=== PATIENT | female | born 1985 | race Caucasian/White ===

== ENCOUNTER 2018-09-06 09:13 | Emergency (ER) | payer OTHER, SELFPAY ==
[~2018-09-06] VITALS: Ht 160 cm; Wt 75.7 kg
--- NOTE | 2018-09-06 09:16 | NUR ---
ARRIVAL PATIENT TO ER 5, AMBULATORY, STATES SHE WAS DRINKING LAST NIGHT, AND TRIPPED OVER HER DOG AND "JAMMED HER PINKY." ASSESSMENT COMPLETED, AWAITING MD MARTIN. CONNECTED TO ALL MONITORS.
[2018-09-06 09:28] VITALS: BP 124/81
--- NOTE | 2018-09-06 09:37 | ER.PDOC ---
General Chief Complaint: Extremities Stated Complaint: FALL,RT HAND PINKY FINGER INJURY Time seen by MD: 09:20 Source: patient Exam Limitations: no limitations History of Present Illness Initial Comments the patient presents to the ER complaining of 1 day h/o right 5th finger/hand pain after she fell on outstreched hand after drinking alcohol last night. the patient's right 5th finger is an abducted and extended position. the patient states she is unable to flex/adduct right 5th finger. she is right handed. she denies pain over thumb, or index-ring fingers. no numbness or tingling in right hand. the patient denies pain over radial aspect of right wrist. the patient denies numbness/tingling. 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 the patient denies hitting her head or any other injuries. pain scale 8/10. no other allev /exac factors. no other complaints. Allergies: Coded Allergies: Penicillins (Verified Allergy, Intermediate, Hives, 09/06/18) Past Medical History Medical History: no pertinent history Surgical History: LMP (females 10-50): last week Family History Significant Family History: no pertinent family hx Social History Smoking: cigarettes, less than 1 pack/day Alcohol Use: occassionally Drug Use: none Reviewed Nursing Reviewed: Vital Signs, Abn. Noted, Nursing Assessment Review of Systems Musculoskeletal: see HPI All Other Systems: Reviewed and Negative Physical Exam General Appearance: Alert Hand: limited ROM Wrist: nml inspection Neuro: sensation nml Vascular: no vascular compromise Forearm/Elbow/Arm: uninjured above wrist Skin: warm/dry Comments right 5th finger is in extended, abducted position. patient is unable to flex/ adduct right 5th finger secondary to pain. tenderness to palpation over right 5th metacarpal and ulnar aspect of right wrist. no tenderness over anatomic snuffbox. no tenderness and full ROM of right thumb, index-ring fingers. good ROM of right wrist, elbow, and shoulder. no significant swelling of finger/ hand. good pulses b/l. Left hand/LUE WNL. Splinting Splinting : Hand-Made Type: aluminum-foam Splint: finger splint and joanie tape to right ring finger Pre-Proc Neuro Vasc Exam: normal Post-Proc Neuro Vasc Exam: normal, unchanged from pre-exam Progress the patient was given ulnar nerve block with 2% lidocaine without epinephrine 5cc. care was taken to aspirate to insure the needle was not in the ulnar artery prior to infiltration. the patient tolerated the procedure well without complications. Progress Progress the patient has remained hemodynamically stable, afebrile and neurologically intact while in the ER. The patient was counseled on finger sprain. the patient was given ulnar nerve block with 2% lidocaine without epi and the patient noted significant improvement of her pain and ROM. I suspect the patient sustained ligamentous injury. the right 5th finger was splinted and joanie taped to right ring finger. the patient was referred to ortho. she was given tramadol in the ER. she has been advised to continue tylenol/motrin at home. Patient advised to f/u with PMD in 1-2 days or return for worsening symptoms/concerns. Further diagnostic workup/therapeutic interventions offered which patient declines at this time EKG/XRAY/CT/US XRAY: hand (negative for fracture or dislocation) Departure Time of Disposition: 10:05 Disposition: 01 HOME, SELF-CARE Impression: Primary Impression: Sprain of right little finger Condition: Improved Patient Instructions: Finger Sprain Referrals: YAZMIN CORTEZ (PCP) PRIMARY CARE PROVIDER ELINA FERNANDEZ MD right 5th finger sprain Additional Instructions: please follow up with your doctor in 1-2 days or return for worsening symptoms/ concerns. apply cold packs and take tylenol/motrin for pain. Duration or Time Spent with Pa: 20min ELINA JONES MD Sep 06, 2018 09:37
[2018-09-06] MEDS ORDERED: LIDOCAINE 2% VIAL ONE (09:45)
--- NOTE | 2018-09-06 09:54 | DIREP ---
PROCEDURE:XRAY HAND MIN 3 VW-RT COMPARISON:None. INDICATIONS:right 5th metacarpal and phalanx pain, unable to flex/adduct r 5th finger FINDINGS: BONES:No visible fracture. JOINTS:Mild dorsal soft tissue swelling at the MCP joints on the lateral image. SOFT TISSUES:Normal. OTHER:The 5th finger is extended medially. CONCLUSION:No visible fracture or dislocation of the 5th finger or MCP joint. Dictated by: Bruce Torres M.D. on 09/06/2018 at 09:46 AM
[2018-09-06 10:00] VITALS: BP 124/81
[2018-09-06] MEDS ORDERED: ULTRAM PO STA (10:08)
[2018-09-06] MEDS ORDERED: ULTRAM ONE (10:12)
[2018-09-06 10:21] VITALS: BP 124/81
== END 2018-09-06 10:17 | disposition home or self-care (01) ==
LOC: ER 09:13
DX: S63.616A Unspecified sprain of right little finger, initial encounter (principal); F17.210 Nicotine dependence, cigarettes, uncomplicated; Z88.0 Allergy status to penicillin; W18.39XA Other fall on same level, initial encounter; Y93.89 Activity, other specified; Y92.89 Other specified places as the place of occurrence of the external cause; Y99.8 Other external cause status
CPT/HCPCS: 29130; 73130; 99283; J2001

== ENCOUNTER 2021-06-02 04:25 | Emergency (ER) | payer OTHER ==
[~2021-06-02] VITALS: Ht 162.6 cm; Wt 78.9 kg
[2021-06-02 04:27] VITALS: BP 135/82
--- NOTE | 2021-06-02 04:27 | NUR ---
Patient arrvied via ems, awake, alert and oriented x3, no acute distress noted. Patient with complaint of LLQ abominal pain onset 1 week ago, LBM 06/01/21, states that on 05/31/27 she had difficulty urinating. Patient denies any medical history, denies any allergies to food or medications, admits to having a hysterectomy and 2 c-sections. Patient with a 20 g peripheral IV to her left hand started by EMS, patient received Zofran 4mg given by EMS. Patient denies any needs at the moment. Will continue to monitor patient.
--- NOTE | 2021-06-02 05:12 | ER.PDOC ---
General Chief Complaint: Abdomen Pain Stated Complaint: ABD PAIN Time seen by MD: 04:55 Source: patient Exam Limitations: no limitations History of Present Illness Initial Comments Patient with history of hysterectomy presents to the emergency department with complaint of left lower quadrant pain for a week. She also complains of nausea, dysuria and urgency. She denies blood in her urine. Patient states she had 7 beers this evening between the hours of 630 and 930. She does smoke about half pack per day. Patient states she had been ignoring the pain but her friend was visiting her and "would not let her ignore the pain anymore" so she came to the emergency department. Of note patient has 1 ovary however she is not sure which ovary she has. Allergies: Coded Allergies: Penicillins (Verified Allergy, Intermediate, Hives, 09/06/18) Vital Signs First Vital Signs Date Time Temp Pulse Resp B/P (MAP) Pulse Ox O2 Delivery O2 Flow Rate FiO2 06/02/21 04:27 98.5 104 18 135/82 (99) 97 Room Air Last Vital Signs Date Time Temp Pulse Resp B/P (MAP) Pulse Ox O2 Delivery O2 Flow Rate FiO2 06/02/21 06:25 98.3 97 16 102/64 (77) 99 Room Air Past Medical History Medical History: no pertinent history Surgical History: hysterectomy Social History Alcohol Use: occassionally Drug Use: none Constitutional: no symptoms reported EENTM: other (Eyes injected bilaterally) Respiratory: no symptoms reported Cardiovascular: no symptoms reported Gastrointestinal: abdominal pain, nausea Genitourinary: dysuria, urgency Musculoskeletal: no symptoms reported Skin: no symptoms reported Physical Exam General Appearance: No Apparent Distress, WD/WN HEENT: PERRL/EOMI, Normal ENT Inspection, Other (Injected sclera bilaterally, No evidence of infection no discharge) Neck: Non-Tender, Full Range of Motion Respiratory: chest non-tender, lungs clear, normal breath sounds, no respiratory distress, no accessory muscle use Cardiovascular: Normal Peripheral Pulses, Regular Rate, Rhythm Back: Normal Inspection, No CVA Tenderness, No Vertebral Tenderness Extremities: Normal Range of Motion, Non-Tender, Normal Inspection Neurologic/Psychiatric: instrument engineer II-XII NML as Tested, No Motor/Sensory Deficits, Alert, Normal Mood/Affect, Oriented x 3 Skin: Normal Color, Warm/Dry Results/Orders Results/Orders Orders - CAREN BOSS MD Cbc With Auto Diff (8/28/21 05:05) Comprehensive Metabolic Panel (06/02/21 05:05) Lipase (06/02/21 05:05) Urinalysis (06/02/21 05:05) Saline Lock (06/02/21 05:05) Drug Scrn Med W Confirmation (06/02/21 05:05) Alcohol(Ml) (06/02/21 05:05) 0.9 % Sodium Chloride (Ns 1000ml) (06/02/21 05:30) 0.9 % Sodium Chloride (Ns 1000ml) (06/02/21 05:28) Ct Abd/Pel With Iv Contrast (06/02/21 05:47) Vital Signs Date Time Temp Pulse Resp B/P (MAP) Pulse Ox O2 Delivery O2 Flow Rate FiO2 06/02/21 06:25 98.3 97 16 102/64 (77) 99 Room Air 06/02/21 05:45 98.3 91 18 121/74 (90) 96 Room Air 06/02/21 04:27 98.5 104 18 97 06/02/21 04:27 98.5 104 18 06/02/21 04:27 98.5 104 18 135/82 (99) 97 Room Air Administered Medications Medications (Trade) Dose Ordered Sig/Jessy Route PRN Reason Start Time Stop Time Status Last Admin Dose Admin Sodium Chloride 1,000 ml @ 1,000 mls/hr Q1H ONCE IV 06/02/21 05:30 06/02/21 06:29 DC 06/02/21 05:30 1,000 MLS/HR Laboratory Tests Test 06/02/21 05:23 White Blood Count 12.7 10^3/uL (4.5-11.0) H Red Blood Count 4.56 10^6/uL (4.00-5.20) Hemoglobin 14.0 g/dL (12.0-15.0) Hematocrit 41.8 % (36.0-46.0) Mean Corpuscular Volume 91.7 fL (78-100) Mean Corpuscular Hemoglobin 30.7 pg (26-34) Mean Corpuscular Hemoglobin Concent 33.5 g/dL (33-36.5) Red Cell Distribution Width 13.0 % (11.5-14.5) Platelet Count 308 10^3/uL (150-400) Mean Platelet Volume 10.5 fL (7.8-11.0) Neutrophils (%) (Auto) 60.7 % (41.0-85.0) Lymphocytes (%) (Auto) 29.3 % (24.0-44.0) Monocytes (%) (Auto) 6.5 % (5.0-12.0) Neutrophils # (Auto) 7.7 10^3/uL (1.8-7.7) Lymphocytes # (Auto) 3.73 10^3/uL1 (1.0-4.8) Monocytes # (Auto) 0.8 10^3/uL (0.3-0.8) Absolute Immature Granulocyte (auto 0.04 10^3 u/L (0-2) Absolute Eosinophils (auto) 0.3 10^3/uL (0.0-0.2) H Immature Granulocytes % 0.30 % (0.00-0.50) Eosinophils % 2.7 % (0.0-5.0) Basophils % 0.5 % (0.0-0.2) H Basophils # 0.1 10^3/uL (0.0-0.1) Urine Collection Type RANDOM Urine Color STRAW Urine Appearance CLEAR Urine Bilirubin NEGATIVE (NEGATIVE) Urine Ketones NEGATIVE (NEGATIVE) Urine Specific [place] <=1.005 (1.005-1.030) Urine pH 5.0 (4.5-8.0) Urine Protein NEGATIVE (NEGATIVE) Urine Urobilinogen 0.2 E.U./dL (0.2) Urine Nitrate NEGATIVE (NEGATIVE) Urine Leukocyte Esterase NEGATIVE (NEGATIVE) Urine Glucose (Auto)(UA) NEGATIVE (NEGATIVE) Urine Blood NEGATIVE (NEGATIVE) Sodium Level 142 mmol/L (132-145) Potassium Level 3.7 mmol/L (3.6-5.2) Chloride Level 108.0 mmol/L (96-109) Carbon Dioxide Level 17.0 mmol/L (20.0-32) L Anion Gap 20.7 Blood Urea Nitrogen 12 mg/dL (7-18) Creatinine 0.87 mg/dL (0.59-1.40) Estimated GFR () 88.6 (>/=60) Est GFR (CKD-EPI)(Non-Afr Jordanian) 73.3 (>/=60) BUN/Creatinine Ratio 13.0 Glucose Level 92 mg/dL (70-110) Calcium Level 8.3 mg/dL (8.4-10.5) L Total Bilirubin 0.2 mg/dL (0.2-1.0) Aspartate Amino Transferase (AST) 17 U/L (0-35) Alanine Aminotransferase (ALT) 18 U/L (12-78) Alkaline Phosphatase 67 U/L (50-136) Total Protein 7.0 g/dL (6.4-8.2) Albumin 3.7 g/dL (3.4-5.0) Globulin 3.3 Albumin/Globulin Ratio 1.121 Lipase 140 U/L (114-286) Urine Opiates Screen NEGATIVE (c/o300ng/mL) Urine Methadone Screen NEGATIVE (c/o300ng/mL) Urine Barbiturates Screen NEGATIVE (c/o200ng/mL) Urine Phencyclidine Screen NEGATIVE (c/o 25ng/mL) Ur Amphetamine/Methamphetamine NEGATIVE (ti9306yx/mL) Urine MDMA Screen (Ecstasy) NEGATIVE (c/o300ng/mL) Urine Benzodiazepines Screen NEGATIVE (c/o200ng/mL) Urine Cocaine Metabolite Screen NEGATIVE (c/o300ng/mL) Ur Tetrahydrocannabinol (THC) Scrn NEGATIVE (c/o 50ng/mL) Serum Alcohol 120 mg/dL (0-50) H Progress Progress Patient CT scan does not show any acute illness. Her white count is slightly elevated however the rest of her laboratory studies including her urine are within normal limits. Her alcohol was 120 which is extremely elevated since patient states she has not had a drink since 9:30 PM. Patient is aware of her lab results I encouraged her to decrease her drinking which is likely contributing to her abdominal pain. Patient has been instructed to follow-up with her primary care physician return to the emergency department if fevers or other worsening symptoms. ER DEPART Departure Time of Disposition: 06:47 Disposition: 01 HOME / SELF CARE / HOMELESS Impression: Primary Impression: Alcohol intoxication Additional Impression: Nonspecific abdominal pain Condition: Stable Referrals: YAZMIN CORTEZ (PCP) PRIMARY CARE PROVIDER Duration or Time Spent with Pa: 11 Problem Qualifiers CAREN BOSS MD Jun 02, 2021 05:12
[2021-06-02] MEDS ORDERED: NS 1000ML 1,000 ML ONE (05:28)
[2021-06-02] MEDS ORDERED: NS 1000ML 1,000 ML IV ONE (05:30)
[2021-06-02 05:31] LABS: BASOPHIL # 0.1 10^3/uL (0.0-0.1); BASOPHIL % 0.5 % (0.0-0.2); EOSINOPHIL # 0.3 10^3/uL (0.0-0.2); EOSINOPHIL % 2.7 % (0.0-5.0); LYMPHOCYTES # 3.73 10^3/uL1 (1.0-4.8); LYMPHOCYTES % 29.3 % (24.0-44.0); MEAN CORP HGB 30.7 pg (26-34); MONOCYTES # 0.8 10^3/uL (0.3-0.8); MONOCYTES % 6.5 % (5.0-12.0); NEUTROPHIL # 7.7 10^3/uL (1.8-7.7); NEUTROPHILS % 60.7 % (41.0-85.0); PLATELET COUNT 308 10^3/uL (150-400)
[2021-06-02 05:34] LABS: BILIRUBIN,URINE NEGATIVE (NEGATIVE); UA COLOR STRAW
[2021-06-02 05:35] LABS: UROBILINOGEN,URINE 0.2 E.U./dL (0.2)
[2021-06-02 05:43] LABS: CALCIUM 8.3 mg/dL (8.4-10.5)
[2021-06-02 05:45] VITALS: BP 121/74
[2021-06-02 06:25] VITALS: BP 102/64
--- NOTE | 2021-06-02 06:41 | DIREP ---
PROCEDURE:CT ABDOMEN/PELVIS W/ CONTRAST COMPARISON:None. INDICATIONS:low abd pain TECHNIQUE:Axial images were created through the abdomen and pelvis with non-ionic intravenous contrast material. No oral contrast was administered. Sagittal and coronal reconstructions were performed from source images. FINDINGS: LUNG BASES:Subsegmental bibasilar atelectasis. No consolidation or effusion. Normal heart size. LIVER:Normal. No significant liver lesions are identified. BILIARY:Normal. No visible dilatation or calcification. PANCREAS:Normal. No lesion, fluid collection, ductal dilatation, or atrophy. SPLEEN:Normal. No enlargement or focal lesion. ADRENALS:Normal. No mass or enlargement. URINARY TRACT:Normal. No focal lesions or hydronephrosis. AORTA/VASCULAR:Minimal scattered calcified atherosclerosis without abdominal aortic aneurysm. RETROPERITONEUM:Normal. No mass or adenopathy. BOWEL/MESENTERY:The appendix is visualized and appears normal. There is no intestinal obstruction, free fluid, free air or mesenteric inflammatory changes. ABDOMINAL WALL:Normal. No mass or hernia. PELVIC ORGANS:The uterus is surgically absent. There is a dystrophic calcification associated with the left ovary and small adjacent cyst. This can be further assessed with ultrasound. BONES:Normal for age. No bony lesion or acute fracture. OTHER:Negative. CONCLUSION: 1. No acute findings in the abdomen or pelvis. 2. Dystrophic calcification and small left ovarian cyst. This can be further assessed with ultrasound if clinically indicated. Dictated by: Tj Malone M.D. on 06/02/2021 at 06:36 AM
[2021-06-02 07:05] VITALS: BP 108/66
== END 2021-06-02 07:02 | disposition home or self-care (01) ==
LOC: EDBD 04:25 → ER 04:25
DX: F10.129 Alcohol abuse with intoxication, unspecified (principal); F17.210 Nicotine dependence, cigarettes, uncomplicated; Z88.0 Allergy status to penicillin; Z90.710 Acquired absence of both cervix and uterus; Y90.6 Blood alcohol level of 120-199 mg/100 ml
CPT/HCPCS: 36415; 74177; 80053; 80307; 81003; 82077; 83690; 85025; 96360; 99285; J7030; Q9965